=== PATIENT | female | born 1970 | race Caucasian/White ===

== ENCOUNTER → 2017-03-26 | Outpatient (CLI) | payer BC ==
[~2017-03-26] MED LIST: AMBIEN DPS10 MG PO; BENTYL-DPS20 MG PO; BI-EST TP; DELTASONE DPS10 MG PO; EFFEXOR DPS75 MG PO; EFFEXOR XR DPS150 M1 PO; ENDOCET 5-3251 EACH PO; GLUCOPHAGE-DPS500 MG PO; GLYXAMBI 10 MG1 EACH PO; KLOR-CON M2020 ME1 PO; LASIX DPS20 MG PO; LIDOCAINE-PRILO30 GM TP; MOBIC15 MG PO; NEURONTIN DPS300 MG PO; PRILOSEC DPS20 MG PO; TOPAMAX50 MG PO
== END | disposition home or self-care (01) ==
LOC: RAD.S 09:30
PROC: 0HBT3ZX Excision of Right Breast, Percutaneous Approach, Diagnostic (ICD-10-PCS; principal; 2017-03-26)
DX: N63 Unspecified lump in breast (principal)